=== PATIENT | male | born 1945 | race Caucasian/White ===

== ENCOUNTER 2019-02-08 15:22 | Observation (INO) | payer MEDICARE, OTHER ==
--- NOTE | 2019-02-08 15:37 | ED ---
HPI Cardiac - HPI Summary HPI Summary: This patient is a 73 year old M brought in by ambulance with a chief complaint of neck pain radiating down into the chest since 08:30. The patient rates the pain 2/10 in severity. Patient reports pain with breathing and nausea. Patient denies vomiting. He woke up with a throat/neck pain that moved downwards throughout the day. His troponin in [place] at 12: 35 was .034, negative. His D dimer was .31, negative. 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 A CXR showed bibasilar atelectasis, left greater than right, and a possibility of left basilar bronchitis or PNA cannot be excluded. Clinical correlation recommended. His brought him to [facility], where a lot of his pain was decreased with medication. He has been in remission since 2015 or 2016 for his esophageal CA. PMHX GERD, esophageal CA. No PMHx HTN, Diabetes, high cholesterol. Vitals in the room: HR 76 bpm, BP 133/80. - History of Current Complaint Chief Complaint: EDChestPainROMI Stated Complaint: TRANSFER FOR [facility] PER EMS Hx Obtained From: Patient Onset/Duration: Started Hours Ago Initial Severity: Severe Current Severity: Mild Pain Intensity: 2 Pain Scale Used: 0-10 Numeric Chest Pain Location: Mid Sternal Chest Pain Radiates: Yes Chest Pain Radiates To:: Neck Aggravating Factor(s): Deep Breaths Associated Signs and Symptoms: Positive: Chest Pain - Allergy/Home Medications Allergies/Adverse Reactions: Allergies Allergy/AdvReac Type Severity Reaction Status Date / Time No Known Allergies Allergy Verified 02/08/19 16:11 Home Medications: Home Medications Cholecalciferol TAB* [Vitamin D TAB*] 1,000 unit PO DAILY WITH MEAL 02/08/19 [ History Confirmed 02/08/19] Pantoprazole TAB * [Protonix TAB*] 40 mg PO DAILY 02/08/19 [History Confirmed ] PMH/Surg Hx/FS Hx/Imm Hx Endocrine/Hematology History: Denies: Hx Diabetes Cardiovascular History: Denies: Hx Hypertension GI History: Reports: Hx Gastroesophageal Reflux Disease Sensory History: Denies: Hx Deafness Infectious Disease History: No Infectious Disease History: Denies: Traveled Outside the [place] in Last 30 Days - Family History Known Family History: Positive: Cardiac Disease - Social History Lives: With Family Review of Systems Positive: Sore Throat - neck/throat pain Positive: Chest Pain Positive: Other - pain with breathing All Other Systems Reviewed And Are Negative: Yes Physical Exam - Summary Physical Exam Summary: VITAL SIGNS: Reviewed. GENERAL: Patient is a well-developed and nourished male who is lying comfortable in the stretcher. Patient is not in any acute respiratory distress. HEAD AND FACE: No signs of trauma. No ecchymosis, hematomas or skull depressions. No sinus tenderness. EYES: PERRLA, EOMI x 2, No injected conjunctiva, no nystagmus. EARS: Hearing grossly intact. Ear canals and tympanic membranes are within normal limits. MOUTH: Oropharynx within normal limits. NECK: Supple, trachea is midline, no adenopathy, no JVD, no carotid bruit, no c- spine tenderness, neck with full ROM. CHEST: Symmetric, no tenderness at palpation LUNGS: Clear to auscultation bilaterally. No wheezing or crackles. CVS: Regular rate and rhythm, S1 and S2 present, no murmurs or gallops appreciated. ABDOMEN: Soft, non-tender. No signs of distention. No rebound no guarding, and no masses palpated. Bowel sounds are normal. EXTREMITIES: FROM in all major joints, no edema, no cyanosis or clubbing. NEURO: Alert and oriented x 3. No acute neurological deficits. Speech is normal and follows commands. SKIN: Dry and warm Triage Information Reviewed: Yes Vital Signs On Initial Exam: Initial Vitals Temp Pulse Resp BP Pulse Ox 98.0 F 73 17 139/80 100 02/08/19 15:26 02/08/19 15:26 02/08/19 15:26 02/08/19 15:26 02/08/19 15:26 Vital Signs Reviewed: Yes Diagnostics - Vital Signs Vital Signs Temp Pulse Resp BP Pulse Ox 02/08/19 15:26 98.0 F 73 17 139/80 100 - Laboratory Result Diagrams: 02/08/19 15:35 02/08/19 15:35 Lab Statement: Any lab studies that have been ordered have been reviewed, and results considered in the medical decision making process. - CT Chest CT Interpretation Completed By: Radiologist Summary of CT Findings: 1. Densities in the bilateral lung bases could be due to hypoventilatory change or. pulmonary edema. 2. There is trace pericardial effusion of indeterminate clinical significance. ED physician has reviewed this report. - EKG 15:27 Cardiac Rate: NL - 73 bpm EKG Rhythm: Sinus Rhythm Summary of EKG Findings: ST elevations V3-6 Disposition - Course Assessment/Plan: This patient is a 73-year-old male who presents to the emergency department after the patient was transferred from [facility] with a chief complaint of chest pain. Patient reports that the pain started approximately 8:30 in the morning lasted for a couple hours and he decided to go to the emergency room at [place]. They did an EKG which shows an normal sinus rhythm without any ST elevation. The troponin was negative and the d- dimer was negative. However Dr. Rizzo who was the ER attending [place] discussed the case with Dr. Mensah from cardiology thinking that the patient has a unSTABLE angina. He recommended for the patient to be transferred to the ED for further workup and management. In the ED the patient reports that the pain is only 1-2 out of 10 and mostly is in the neck. He denies any nausea, vomiting, shortness of breath, palpitations, or any dizziness. He reports that the pain has improved from the initial time of the chest pain. The EKG is a sinus rhythm at [address] elevations in V3-6. However he shows slight J -point elevation therefore I discuss my EKG findings and physical exam with and Dr. Cerna from interventional cardiology who reviewed the EKG. At this time he recommends to the blood work and see if the troponin is elevated or increasing to see if the patient needs the catheter lab. At this time the patient is hemodynamically stable and he is alert and oriented 3. Test results without any significant abnormality except for WBCs of 11, troponin is 0.01. I discussed the case with Dr. Mensah and he recommends for the patient to be admitted to the hospital services for further workup and management. Because of the history of the esophageal cancer I decided to do a chest CT. The patients shows a density is in the bilateral lung bases: Due to the hypoventilatory change or pulmonary edema. There is trace pericardial effusion of indeterminate clinical significance. I discuss my physical exam, findings and test results with Dr. Ng from the hospitalist services and he agrees to admit patient to his services. Patient is hemodynamically stable alert and oriented x 3. - Diagnoses Provider Diagnoses: Chest pain - Physician Notifications Discussed Care Of Patient With: Marcis T Sodums Time Discussed With Above Provider: 15:41 Instructed by Provider To: Other - Recommends repeating bloodwork and repeat EKG in 15 minutes. Discharge - Sign-Out/Discharge Documenting (check all that apply): Patient Departure - admission Patient Received Moderate/Deep Sedation with Procedure: No - Discharge Plan Condition: Fair Disposition: ADMITTED TO [facility] Referrals: Luiz Acevedo MD [Primary Care Provider] - - Attestation Statements Document Initiated by Scribe: Yes Documenting Scribe: Fernandez Sauer Provider For Whom Scribe is Documenting (Include Credential): Tr Max MD Scribe Attestation: IFernandez, scribed for Tr Max MD on 02/08/19 at 1842. Status of Scribe Document: Ready Consult Consult: I spoke with Dr. Ng, hospitalist, at 17:55 and he recommended admission.
[2019-02-08 15:52] LABS: ABS Basophils 0 10^3/ul (0-0.2); ABS Eosinophils 0.1 10^3/ul (0-0.6); ABS Monocytes 0.9 10^3/ul (0-0.8); ABS Nucleated RBC 0 10^3/ul; Eosinophil % 0.7 %; Hematocrit 43 % (36-46); Hemoglobin 14.3 g/dL (14.0-18.0); Lymphocyte % 9.3 %; Mean Corpuscular HGB Conc 33 g/dL (31-36); Mean Corpuscular Hemoglobin 30 pg (27-31); Mean Corpuscular Volume 91 fL (80-94); Mean Platelet Volume 7.6 fL (7.4-10.4); Nucleated Red Blood Cells % 0.1; Platelet Count 242 10^3/uL (150-450); Red Blood Count 4.75 10^6 /uL (4.18-5.48); Red Cell Distribution Width 13 % (10.5-15)
[2019-02-08 16:03] LABS: Activated Partial Thrombo Time 29.5 seconds (26.0-36.3); INR 0.95 (0.77-1.02)
[2019-02-08 16:10] LABS: Albumin 4.1 g/dL (3.2-5.2); Albumin/Globulin Ratio 1.5 (1-3); BUN/Creatinine Ratio 21.2 (8-20); EGFR African American 107.5 (>60); EGFR Non-African American 88.9 (>60); Globulin 2.7 g/dL (2-4); Potassium 4.2 mmol/L (3.5-5.0); Total Bilirubin 0.7 mg/dL (0.2-1.0); Total Protein 6.8 g/dL (6.4-8.9)
[2019-02-08 16:13] LABS: Troponin I 0.01 ng/mL (<0.04)
[2019-02-08 16:14] LABS: Myoglobin 24.4 ng/mL (17.4-105.7)
[2019-02-08 16:15] LABS: CKMB ng/mL 3.5 ng/mL (0.6-6.3)
[2019-02-08] MEDS ORDERED: Iohexol 300* (CONTRAST) 10 ML SDV IV ONE (17:21)
[2019-02-08] MEDS ORDERED: Morphine 4 MG/ML VIAL (1 ml) 4 MG/ML VIAL IV ONE (18:00)
[2019-02-08 18:01] LABS: Urine Appearance Clear; Urine Bilirubin Negative (Negative); Urine Blood Negative (Negative); Urine Color Yellow; Urine Glucose Negative (Negative); Urine Ketones Negative (Negative); Urine Nitrite Negative (Negative); Urine Protein Negative (Negative); Urine Specific Gravity 1.017 (1.010-1.030); Urine Urobilinogen Negative (Negative)
[2019-02-08] MEDS ORDERED: Morphine 4 MG/ML VIAL (1 ml) 4 MG/ML VIAL IV PRN (18:52)
--- NOTE | 2019-02-08 20:47 | HP ---
CC: Dr. Acevedo * [facility] MEDICINE HISTORY AND PHYSICAL: DATE OF ADMISSION: 02/08/19 PRIMARY CARE PHYSICIAN: Dr. Acevedo. ATTENDING PHYSICIAN: Dr. Graham Ng * (dictation provided by Anna Cruz NP). CHIEF COMPLAINT: Throat and chest pain. HISTORY OF PRESENT ILLNESS: Mr. Alarcon is a 73-year-old male with a past medical history of esophageal cancer, status post chemo and radiation, has completed therapy, as well as GERD, who presents to the hospital with concern for throat and chest pain. Mr. Alarcon states that he has had a persistent dry cough for about 3 weeks, but this has been resolving. Over the course of that, he has had sensation of possibly developing a sore throat, but nothing came up of it. This morning, he awoke and his throat was a bit sore and he just assumed that he was getting a normal viral infection. He went to [place] and while there, he had the sudden onset of severe throat pain that radiated into his chest. He states that the pain is worse with deep breathing. It is not painful to swallow. He has had no other chest pain other than described with deep breathing. It is not worsened with activity. He has had no diaphoresis. He has had no nausea or vomiting. He states over the course of his recent illness, he has had no fever. Mr. Alarcon was near [facility] and was evaluated there initially. There was concern for his EKG possibly showing an ST-elevation AR and therefore consultation was undertaken with Dr. Cerna and transferred to [facility], possible Interventional Cardiology assessment was initiated. Here in the ED, the patient's EKG shows J-point elevation only. The patient's first troponin at [place] was 0.034 and here in our hospital is 0.01. The patient is continuing to complain of this discomfort in the throat with radiation into his chest. Again, he states he is having no trouble breathing, although it is painful in his chest when he takes a deep breath. He is having no trouble swallowing. He has had improvement in pain with morphine. PAST MEDICAL HISTORY: Esophageal cancer, status post chemo and radiation. He has completed treatment with last scan, August 2018. PAST SURGICAL HISTORY: 1. Right shoulder surgery. 2. Left knee surgery. MEDICATIONS: 1. Pantoprazole 40 mg p.o. daily. 2. Cholecalciferol 1000 units p.o. daily. ALLERGIES: No known drug allergies. FAMILY HISTORY: Reviewed and noncontributory. SOCIAL HISTORY: The patient is a continued smoker and smokes a pipe. No report of alcohol or drug use. He lives with his , who is his healthcare proxy. REVIEW OF SYSTEMS: A 14-point review of systems was completed with Mr. Alarcon and all those not mentioned above were negative. PHYSICAL EXAMINATION GENERAL: Mr. Alarcon is sitting up on his bed with his family at the bedside. He is in no acute distress, although he does appear uncomfortable. VITAL SIGNS: Temperature 98.0, pulse rate 73, respiratory rate 17, O2 saturation 100% on 2 L nasal cannula, blood pressure 139/80. HEENT: The patient's tongue is large and despite using a tongue depressor, I am not able to assess his oropharynx well. The patient has no appreciable lymphadenopathy on exam. LUNGS: Clear to auscultation bilaterally with no accessory muscle use and good aeration. HEART: S1, S2. No murmur, rub, or gallop and regular. ABDOMEN: Soft, nontender with bowel sounds positive x4. EXTREMITIES: No cyanosis or edema. NEURO: He is alert. He is oriented x3. He moves all extremities equally. There is no facial asymmetry or focal weakness. Extraocular movements are intact. SKIN: Intact. DIAGNOSTIC STUDIES/LAB DATA: Sodium 137, potassium 4.2, chloride 106, serum bicarbonate 27, BUN 18, creatinine 0.85, glucose 100. Troponin 0.01. WBC 11.0 , hemoglobin 14.3, hematocrit 43, platelet count 242. INR is 0.95. Urine shows no evidence of infection. Again, the EKG shows a J-point elevation with a heart rate of about 70, and a chest CT taken here shows densities in the bilateral lung bases, could be due to hypoventilatory change or pulmonary edema. There is a trace pericardial effusion of indeterminate clinical significance. ASSESSMENT AND PLAN: Mr. Alarcon is a 73-year-old male with a past medical history of esophageal cancer, now presenting with sudden onset of throat and chest pain with deep breathing of unclear etiology. Our plans are for observation in the hospital for the followin. Throat and chest pain. The patient has no appreciable lymphadenopathy and clearly I am not able to assess his oropharynx very well, but he denies any pain with swallowing, which would make simple viral infection less likely. It is not clear what is driving his symptoms. He is breathing easily. His workup thus far is negative. His chest CT is negative. I question whether or not he is developing an early bronchitis. I think he deserves observation in the hospital overnight. Given that he is complaining of chest pain, I do question whether or not this could be reflective of an atypical presentation for an acute coronary syndrome and we will order a stress test with nuclear medicine tomorrow. The patient's troponins have been negative. We will repeat x1 more for a total of 3. 2. History of esophageal cancer. A chest CT does not show an appreciable abnormality in the chest. Again, he only has pain with breathing and no pain with swallowing. He is breathing easily and the vitals are stable. There is further concern that this might be related to his oncological process, oncology consultation could be considered tomorrow. 3. Gastroesophageal reflux disease. Continue pantoprazole. 4. DVT prophylaxis with heparin subcu. 5. Code status is full code. TIME SPENT: Approximately 60 minutes was spent on the admission of this patient , more than half the time spent with the patient at the bedside reviewing the events leading up to the hospitalization, performing the physical examination and reviewing the plan of care. ANNA CRUZ NP [id number]/[facility]PS #: [id number] TOMMY
[2019-02-08] MEDS: Heparin VIAL(*) 5000 UNITS/ML VIAL (FIVE THOUSAND) SUBCUT SCH (20:59)
[2019-02-08] MEDS ORDERED: Acetaminophen TAB* 325 MG PO PRN (21:29)
[2019-02-09] MEDS: Heparin VIAL(*) 5000 UNITS/ML VIAL (FIVE THOUSAND) SUBCUT SCH ×2 (05:47→14:56)
[2019-02-09 06:26] LABS: HDL Cholesterol 49.3 mg/dL
[2019-02-09] MEDS ORDERED: Regadenoson* 0.4 MG/5 ML SYRINGE ONE (07:12)
[2019-02-09 08:19] VITALS: BP 126/72
[2019-02-09] MEDS ORDERED: Aspirin 81 mg CHEW TAB* 81 MG TAB.CHEW PO SCH (09:00)
[2019-02-09] MEDS ORDERED: Pantoprazole TAB * 40 MG TAB PO SCH (09:00)
[2019-02-09] MEDS ORDERED: Ibuprofen TAB* 600 MG PO PRN (14:38)
--- NOTE | 2019-02-09 17:21 | ECHO ---
Patient: CHINA JORGENSEN [facility] Rec#: [id number] : 1945 Date: 02/09/2019 Age: 73y Height: 183 cm / 72.0 in Weight: 85 kg / 187.3 lbs Sex: M BSA: 2.07 Room#: 4 02 Admit Date#: 02/08/2019 Type: Inpatient Referring: Huy Ng MD Reading: Cristhian Prakash MD Fruit Dumper: Caryl Red RDCS,RDMS CC: Monisha Chandler MD Transthoracic Echocardiogram Indication: CP BP: 126/72 HR: 78 Rhythm: NSR Findings History: Esophageal cancer, chemotherapy, GERD Technical Comments: The study quality is fair. Left Ventricle: The left ventricular chamber size is normal. Mild concentric left ventricular hypertrophy is observed. Global left ventricular wall motion and contractility are within normal limits. There is normal left ventricular systolic function. The estimated ejection fraction is 55-60%. Abnormal left ventricular diastolic function is observed. Left Atrium: The left atrial chamber size is normal. Right Ventricle: The right ventricular chamber size and systolic function are within normal limits. Right Atrium: The right atrial cavity size is normal. Aortic Valve: The aortic valve is trileaflet. The aortic valve leaflets are mildly thickened. There is moderate thickening of the non coronary cusp. Systolic excursion of the aortic valve is normal. There is mild to moderate aortic regurgitation. There is no evidence of aortic stenosis. Mitral Valve: The mitral valve leaflets appear normal. There is mitral annular calcification. There is no evidence of mitral regurgitation. There is no evidence of mitral stenosis. Tricuspid Valve: The tricuspid valve leaflets are normal. There is trace tricuspid regurgitation. Unable to estimate the right ventricular systolic pressure. Pulmonic Valve: There is no evidence of pulmonic valve thickening. There is no evidence of pulmonic regurgitation. Pericardium: There is no significant pericardial effusion. Aorta: There is mild dilatation of the ascending aorta. There is no dilatation of the aortic arch. There is mild dilatation of the aortic root. Pulmonary Artery: The main pulmonary artery is not well visualized. Venous: The inferior vena cava is dilated. There is less than 50% respiratory change in the inferior vena cava dimension. Summary: There was not any prior study for comparison. Conclusions Mild concentric left ventricular hypertrophy is observed. Global left ventricular wall motion and contractility are within normal limits. There is normal left ventricular systolic function. The estimated ejection fraction is 55-60%. The right ventricular chamber size and systolic function are within normal limits. The aortic valve leaflets are mildly thickened. There is no evidence of aortic stenosis. There is mild to moderate aortic regurgitation. There is no evidence of mitral regurgitation. There is trace tricuspid regurgitation. Unable to estimate the right ventricular systolic pressure. There is no significant pericardial effusion. Measurements Name Value Normal Range RVIDd (AP) 2D 2.2 cm (0.9 - 2.6) RVDdMajor (2D) 2.2 cm (2.2 - 4.4) RAd ISD 4CH 4.6 cm (3.4 - 4.9) RA (A4C)W 3.2 cm (2.9 - 4.6) IVSd (2D) 1.1 cm (0.6 - 1) LVPWd (2D) 1.1 cm (0.6 - 1) LVIDd (2D) 4.2 cm (3.6 - 5.4) LVIDs (2D) 2.6 cm - LV FS (2D) 37 % (25 - 45) Aortic Annulus 2.3 cm (1.4 - 2.6) Ao root diameter (2D) 3.6 cm (2.1 - 3.5) Ascending Ao 4 cm (2.1 - 3.4) Aortic arch 2.8 cm (1.8 - 3.4) LA dimension (AP) 2D 3.4 cm (2.3 - 3.8) LAd ISD 4CH 5.1 cm (2.9 - 5.3) LA ISD 4CH W 3.7 cm (2.5 - 4.5) Name Value Normal Range LA ESV BP (A/L) index 26 ml/m2 - Name Value Normal Range MV E-wave Vmax 0.8 m/sec - MV deceleration time 174 msec - MV A-wave Vmax 0.8 m/sec - MV E:A ratio 1 ratio - LV septal e' Vmax 0.07 m/sec - LV lateral e' Vmax 0.09 m/sec - LV E:e' septal ratio 12 ratio - LV E:e' lateral ratio 9 ratio - Name Value Normal Range AV Vmax 1.9 m/sec - AV VTI 33 cm - AV peak gradient 14 mmHg - AV mean gradient 8 mmHg - LVOT diameter 2.3 cm - LVOT Vmax 1.2 m/sec - LVOT VTI 24 cm - LVOT peak gradient 6 mmHg - LVOT mean gradient 3 mmHg - CHAIM (continuity Vmax) 2.6 cm2 - CHAIM (continuity VTI) 3 cm2 - AR PHT 436 msec - LATONYA Vmax 0.8 m/sec - Name Value Normal Range IVC diameter 2.4 cm - Name Value Normal Range PV Vmax 0.8 m/sec - PV peak gradient 2.6 mmHg -
--- NOTE | 2019-02-09 22:02 | DS ---
CC: Sary Cedeno * DISCHARGE SUMMARY: DATE OF ADMISSION: DATE OF DISCHARGE: 02/09/19 HISTORY OF PRESENT ILLNESS AND HOSPITAL COURSE: This 73-year-old man presented with chest pain. His history is detailed in the admission note. He had pain in his neck, throat, chest that was worse when he lied down on bed and when he sat up. It was pretty much continuous all day. It was a little better on the day of discharge. He was admitted to the telemetry unit. He had 3 troponin levels, all of which were within normal limits. He underwent a nuclear stress test, which have not shown any evidence of infarct or ischemia. He is having an echocardiogram, the results of which are not available at the time of this dictation. On exam, he seemed well. He was afebrile. He was hemodynamically stable. His blood pressure was 126/72 on the day of discharge. There was no audible rub or murmur. The pain seemed to be mild. He was treated with ibuprofen for a week scheduled and p.r.n. Echocardiogram report will be checked. FINAL DIAGNOSES: 1. Throat and chest pain. 2. History of esophageal cancer. DISCHARGE MEDICATIONS: 1. Ibuprofen 600 mg t.i.d. for 1 week and then p.r.n. 2. Pantoprazole 40 mg daily. 3. Vitamin D 1000 units daily. CONDITION ON DISCHARGE: Stable disposition on discharge home. [id number]/[facility] #: [id number] MTDD
== END 2019-02-09 17:25 | disposition home or self-care (01) ==
LOC: ED 15:22 → MEDTELE 18:50
PROVIDERS: ADMIT Internal Medicine; ATTEND Internal Medicine
DX: R07.9 Chest pain, unspecified (principal); J02.9 Acute pharyngitis, unspecified; Z85.01 Personal history of malignant neoplasm of esophagus; Z92.21 Personal history of antineoplastic chemotherapy; K21.9 Gastro-esophageal reflux disease without esophagitis
CPT/HCPCS: 36415; 71260; 78452; 80053; 80061; 81003; 82550; 82553; 83605; 83721; 83874; 83880; 84484; 85025; 85610; 85730; 86850; 86900; 86901; 93005; 93017; 93306; 96372; 96374; 96375; 99285; A9270-GY; A9502; G0378; J1644; J2270; J2785; Q9967